=== PATIENT | male | born 2000 | race Caucasian/White ===

== ENCOUNTER 2024-08-30 13:55 | Emergency (ER) | payer OTHER, SELFPAY ==
[2024-08-30 14:36] VITALS: BP 90/53; PULSE 57; RESP 20; TEMP 36.7; O2SAT 100
--- NOTE | 2024-08-30 16:43 | ED_ITS ---
HPI - General Adult General Chief complaint: Dental/Oral Stated complaint: Toothache Source: patient and family Mode of arrival: ambulatory Limitations: no limitations History of Present Illness HPI narrative: Patient presents for evaluation of bilateral lower dental pain. Symptom onset about 1 week ago. Pain is constant, without descriptive quality, and moderate in severity. He tried taking 400mg ibuprofen for his symptoms. He also had what sounds like a low dose of amoxicillin that he took twice per day. He denies fever, chills, nausea, vomiting, facial swelling. He does not smoke tobacco but does smoke marijuana. Related Data Allergies Allergy/AdvReac Type Severity Reaction Status Date / Time No Known Allergies Allergy Verified 08/30/24 15:03 Review of Systems Review of Systems: CONSTITUTIONAL: Denies fever, chills, or sweats. EYES: Denies visual changes, redness, or discharge. ENT: Reports bilateral lower dental pain. Denies rhinorrhea, congestion, sore throat, or otalgia. CARDIOVASCULAR: Denies chest pain, palpitations, or edema. RESPIRATORY: Denies cough or dyspnea. GASTROINTESTINAL: Denies abdominal pain, nausea, vomiting, or diarrhea. GENITOURINARY: Denies dysuria or hematuria. SKIN: Denies rash or itching. MUSCULOSKELETAL: Denies back pain, joint pain, or myalgia. NEUROLOGIC: Denies headache, numbness, dizziness, or weakness. PSYCHIATRIC: Denies anxiety or depression. PMFSH Past Medical History Medical History No pertinent past medical history Surgical History Surgical History No pertinent past surgical history Family History Family History Mother Family history non-contributory Social History Social History Smoking status: Never smoker Substance use: current Substance use type: marijuana Living arrangements: with family Gender identity (if verbalized by the patient): Male Spiritual care concerns: No Exam Narrative: GENERAL: Well-appearing, well-nourished, and in no acute distress. HEAD: Normocephalic, atraumatic. EYES: PERRLA and EOMI. ENT: Nares clear, no rhinorrhea or epistaxis. Mucous membranes moist. Bilateral lower wisdom teeth are impacted. Oropharynx without tonsillar hypertrophy exudate or other lesions. Bilateral TMs pearly avila nonbulging NECK: Supple. No adenopathy or masses. No carotid bruits or JVD CHEST: Clear to auscultation. No respiratory distress. No wheezes rales or rhonchi HEART: Regular rate and rhythm. No murmur heard. Normal peripheral pulses. ABDOMEN: Soft, nontender, nondistended, normal active bowel sounds. EXTREMITIES: Normal range of motion. No edema. SKIN: Warm, dry, no rash. NEURO: No focal deficits. Alert and oriented x3. PSYCH: Normal mood and affect. Course Course Emergency Course: This is a 23-year-old male who presented for evaluation of bilateral lower dental pain. He has impacted wisdom teeth on exam. Will dc with PCN and ibuprofen. Recommend he follow up with dentist. Go to the ER for worsening symptoms. Pt in agreement with plan of care. Level of Care: Express Care Visit Vital Signs Vital signs: Vital Signs Temperature 36.7 C 08/30/24 14:36 Pulse Rate 57 L 08/30/24 14:36 Respiratory Rate 20 08/30/24 14:36 Blood Pressure 90/53 L 08/30/24 14:36 Pulse Oximetry 100 08/30/24 14:36 Oxygen Delivery Room Air 08/30/24 14:36 Temperature 36.7 C 08/30/24 14:36 Pulse Rate 57 L 08/30/24 14:36 Respiratory Rate 20 08/30/24 14:36 Blood Pressure 90/53 L 08/30/24 14:36 Pulse Oximetry 100 08/30/24 14:36 Oxygen Delivery Room Air 08/30/24 14:36 Medical Decision Making Vital Signs Vital Signs: Vital Signs Temperature 36.7 C 08/30/24 14:36 Pulse Rate 57 L 08/30/24 14:36 Respiratory Rate 20 08/30/24 14:36 Blood Pressure 90/53 L 08/30/24 14:36 Pulse Oximetry 100 08/30/24 14:36 Oxygen Delivery Room Air 08/30/24 14:36 Temperature 36.7 C 08/30/24 14:36 Pulse Rate 57 L 08/30/24 14:36 Respiratory Rate 20 08/30/24 14:36 Blood Pressure 90/53 L 08/30/24 14:36 Pulse Oximetry 100 08/30/24 14:36 Oxygen Delivery Room Air 08/30/24 14:36 Discharge Plan Discharge Clinical Impression: Impacted teeth Patient Disposition: Home, Self-Care Condition: Stable Instructions: Antibiotic Form, Toothache (ED) Patient Language: Trinid[place] Prescriptions: New penicillin V potassium 500 mg tablet 500 mg PO Q6H 10 Days Qty: 40 0RF ibuprofen 800 mg tablet 800 mg PO TID PRN (Reason: pain) Qty: 30 0RF Follow-up/Referrals: Arabella,BECCA Vasquez [Primary Care Provider] - Time of Disposition: 16:42
== END 2024-08-30 16:43 | disposition home or self-care (01) ==
PROVIDERS: Emergency Provider Nurse Practitioner; PCP Physician Assistant
DX: K01.1 Impacted teeth (principal); F12.90 Cannabis use, unspecified, uncomplicated
CPT/HCPCS: 99203; G0463